=== PATIENT | female | born 1995 | race Caucasian/White ===

== ENCOUNTER 2017-09-01 21:24 | Emergency (ER) | payer MEDICAID ==
[~2017-09-01] VITALS: Ht 170.2 cm; Wt 79.4 kg
[2017-09-01 21:28] VITALS: BP 111/72
[2017-09-01] MEDS ORDERED: ESCI20TA PO (22:12)
== END 2017-09-01 22:16 | disposition home or self-care (01) ==
LOC: ED 22:05
DX: Z76.0 Encounter for issue of repeat prescription (principal); Z00.00 Encounter for general adult medical examination without abnormal findings
CPT/HCPCS: 99281